=== PATIENT | male | born 1990 | race Caucasian/White ===

== ENCOUNTER 2019-02-21 09:56 | Emergency (ER) | payer OTHER ==
[~2019-02-21] VITALS: Ht 175.3 cm; Wt 68.0 kg
--- NOTE | 2019-02-21 09:58 | NUR ---
PT IS IN ROOM #2A. DR GRAY EVALUATED THE PT.
--- NOTE | 2019-02-21 10:01 | NUR ---
C-spine cleared by . Collar and backboard removed. Patient able to move all extremities before and after backboard removal.
[2019-02-21] MEDS ORDERED: MORPHINE SULFATE 2 MG/1 ML DISP.SYRIN ONE (10:11)
[2019-02-21] MEDS ORDERED: MORPHINE SULFATE 4 MG/1 ML DISP.SYRIN ONE (10:11)
[2019-02-21] MEDS ORDERED: MORPHINE SULFATE 4 MG/1 ML DISP.SYRIN IM ONE (10:15)
--- NOTE | 2019-02-21 14:23 | NUR ---
BEFORE GOING HOME PT GOT DIZZY AND NAUSETED. DR GRAY WAS NOTIFIED ACCU CHECK AND EKG WERE DONR ACCORDING DR GRAY ORDER. PT WAS PROVIDED WITH FOOD . PT STATES HE FEELS MUCH BETTER NOW. GAIT IS STABLE.
--- NOTE | 2019-02-21 14:32 | NUR ---
PT WAS D/C TO HOME. D/C INSTRUCTIONS GIVEN TO THE PT AND TO HIS MOTHER. NO S/S OF DISTRESS AT THIS TIME.
[2019-02-21 14:36] VITALS: BP 123/72
== END 2019-02-21 14:39 | disposition home or self-care (01) ==
LOC: ER 09:56
DX: S03.2XXA Dislocation of tooth, initial encounter (principal); S00.512A Abrasion of oral cavity, initial encounter; S09.90XA Unspecified injury of head, initial encounter; M54.2 Cervicalgia; V89.2XXA Person injured in unspecified motor-vehicle accident, traffic, initial encounter; Y93.89 Activity, other specified; Y92.89 Other specified places as the place of occurrence of the external cause; Y99.8 Other external cause status
CPT/HCPCS: 72020; 72040; 93005; 96372; 99283; J2270 ×2; 70030-TC; A4663